=== PATIENT | male | born 1960 | race Caucasian/White ===

== ENCOUNTER 2016-08-15 12:57 | Emergency (ER) | payer MEDICAID ==
--- NOTE | 2016-08-15 13:02 | ED Physician Chart ---
Chief Complaint/HPI - Patient Information Date Seen:: 08/15/16 Time Seen:: 13:01 Chief Complaint:: urinary incontinence History of Present Illness:: 55-year-old male history of urinary incontinence and psychiatric issues complains of acute, intermittent, moderate, urinary incontinence, that seems to be worse at night, 2 weeks. Had recent UTI won't take antibiotics but symptoms did not improve. Allergies:: Allergies Allergy/AdvReac Type Severity Reaction Status Date / Time No Known Allergies Allergy Verified 07/27/16 19:41 Historian:: Patient, EMS Review:: Nurse's Note Reviewed, EMS run form Reviewed, Transfer documents Reviewed Review of Systems - Review of Systems Other: Complete system review otherwise unremarkable except as noted in HPI. Past Medical History - Past Medical History Past Medical History: Other (urinary incontinence) Family History: None Social History: Non Smoker, No Alcohol, No Drug Use, Care Facility Surgical History: None Psychiatricy History: Other Medication: Reviewed Family Medical History - Family Member Mother History Unknown: Yes Ethnicity: Non- Living Status: Hx Family Cancer: No Hx Family Coronary Artery Disease: No Hx Family Congestive Heart Failure: No Hx Family Hypertension: No Hx Family Stroke: No Hx Family Diabetes: No Hx Family Seizures: No Hx Family Dementia: No Hx Family AIDS: No Hx Family HIV: No Hx Family COPD: No Hx Family Hepatitis: No Hx Family Psychiatric Problems: No Hx Family Tuberculosis: No Physical Exam - Physical Examination Other:: INITIAL VITAL SIGNS: Reviewed by me GENERAL: Alert and interactive. No acute distress HEAD: Head is normocephalic and atraumatic EYES: EOMI. . No scleral icterus. No conjunctival injection ENT: Moist mucous membranes. NECK: Supple. No masses. Full range of motion RESPIRATORY: No tachypnea. Clear breath sounds bilaterally. No wheezing, rales, or rhonchi CV: Regular rate and rhythm. No murmurs, rubs, or gallops ABDOMEN: Soft, non-distended, non-tender. No guarding. No rebound. No masses. EXTREMITIES: No deformity. No cyanosis. No edema. SKIN: Warm and dry. No obvious rashes. NEUROLOGIC: Alert and oriented. Face is symmetric. Speech is normal. Moves all extremities equally. Motor and sensory distally intact. Labs/Radiology/EKG Results - Lab Results Results: Lab Results 08/15/16 08/15/16 Range/Units 13:23 13:35 WBC 6.3 (4.8-10.8) Th/cmm RBC 5.51 (4.30-5.70) Mil/cmm Hgb 15.2 D (13.2-17.3) gm/dL Hct 45.2 D (39.0-49.0) % MCV 82.0 (80-99) fl MCH 27.6 (26.0-30.0) pg MCHC Differential 33.6 (28.0-36.0) pg RDW 13.6 (11.5-20.0) % Plt Count 200 D (150-400) Th/cmm MPV 7.3 fl Neutrophils % 65.1 (40.0-80.0) % Lymphocytes % 27.3 (20.0-50.0) % Monocytes % 5.5 (2.0-10.0) % Eosinophils % 1.7 (0.0-5.0) % Basophils % 0.4 (0.0-2.0) % Urine Source CLEAN C Urine Color YELLOW Urine Clarity CLEAR (CLEAR) Urine pH 7.0 Ur Specific Griffin 1.020 (1.005-1.030) Urine Protein NEGATIVE (NEGATIVE) mg/dL Urine Glucose (UA) NEGATIVE (NEGATIVE) mg/dL Urine Ketones NEGATIVE (NEGATIVE) mg/dL Urine Blood NEGATIVE (NEGATIVE) Urine Nitrate NEGATIVE (NEGATIVE) Urine Bilirubin NEGATIVE (NEGATIVE) Urine Urobilinogen 0.2 (0.2 - 1.0) E.U./dL Ur Leukocyte Esterase NEGATIVE (NEGATIVE) Urine RBC 0-2 H (0-5) /hpf Urine WBC 0-2 (0-5) /hpf Ur Epithelial Cells RARE (FEW) /lpf Urine Bacteria NONE SEEN (NONE SEEN) /hpf ED Septic Shock - . Is Septic Shock (SBP<90, OR Lactate>4 mmol\L) present?: No Reassessment (Disposition) - Reassessment Reassessment:: The patient is experience intermittent urinary incontinence. Labs showed some hypoglycemia. Drinking a few juices. Accu-Chek showed great improvement. Patient was asymptomatic. No UTI. Discussed case with the physician Dr. Henderson. To be treated as outpatient. Referred to urology. Gave return to ER precautions. Patient understands and agrees the plan. Reassessment Condition:: Improved - Diagnosis Diagnosis:: Urinary incontinence - Aftercare/Follow up Instructions Aftercare/Follow-Up Instructions:: Counseled pt regarding lab results/diagnosis & need follow up, Refer to Discharge Instructions - Patient Disposition Discharge/Transfer:: Home Time:: 14:13 Condition at Disposition:: Improved ED Discharge Plan - Patient Disposition Admit/Discharge/Transfer: PT DISCHARGED HOME Instructions: Urinary Incontinence-Brief Additional Instructions: Follow up with PMD this week. Accepting Physician: Anselmo Guevara [Provisional Staff] -
[2016-08-15 13:43] LABS: URINE BILIRUBIN NEGATIVE (NEGATIVE); URINE BLOOD NEGATIVE (NEGATIVE); URINE COLOR YELLOW; URINE GLUCOSE (UA) NEGATIVE (NEGATIVE); URINE KETONE NEGATIVE (NEGATIVE)
[2016-08-15 13:44] LABS: URINE PROTEIN NEGATIVE (NEGATIVE); URINE UROBILINOGEN 0.2 E.U./dL (0.2 - 1.0)
[2016-08-15 13:46] LABS: URINE BACTERIA NONE SEEN /hpf (NONE SEEN); URINE EPITHELIAL CELLS RARE /lpf (FEW); URINE RBC 0-2 /hpf (0-5); URINE WBC 0-2 /hpf (0-5)
[2016-08-15 13:57] LABS: % BASOPHILS 0.4 % (0.0-2.0); % EOSINOPHILS 1.7 % (0.0-5.0); % LYMPHOCYTES 27.3 % (20.0-50.0); % MONOCYTES 5.5 % (2.0-10.0); % NEUTROPHILS 65.1 % (40.0-80.0); MEAN CORPUSCULAR HEMOGLOBIN 27.6 pg (26.0-30.0); MEAN CORPUSCULAR HGB CONC 33.6 pg (28.0-36.0); MEAN PLATELET VOLUME 7.3 fl; NEUTROPHILE ABSOLUTE 4.2 Th/cmm (1.8-8.0); RED BLOOD COUNT 5.51 Mil/cmm (4.30-5.70); RED CELL DISTRIBUTION WIDTH 13.6 % (11.5-20.0); WHITE BLOOD COUNT 6.3 Th/cmm (4.8-10.8)
[2016-08-15 14:00] LABS: HEMOGLOBIN 15.2 gm/dL (13.2-17.3)
[2016-08-15 14:01] LABS: HEMATOCRIT 45.2 % (39.0-49.0); PLATELET COUNT 200 Th/cmm (150-400)
[2016-08-15 14:12] LABS: ALB/GLOB RATIO 1.5 (1.0-1.8); ALKALINE PHOSPHATASE 161 U/L (34-104); ANION GAP 11.6 (7.0-16.0); BILIRUBIN,TOTAL 0.6 mg/dL (0.3-1.0); BUN - UREA NITROGEN 18 mg/dL (7-25); CALCIUM SERUM 10.5 mg/dL (8.6-10.3); CARBON DIOXIDE 29.2 mEq/L (21.0-31.0); CHLORIDE 99 mEq/L (98-107); POTASSIUM SERUM 3.8 mEq/L (3.5-5.1); SGOT 28 U/L (13-39); SGPT/ALT 20 U/L (7-52); SODIUM SERUM 136 mEq/L (136-145)
[2016-08-15 14:13] LABS: GLUCOSE 49 mg/dL (70-105)
== END 2016-08-15 15:20 | disposition home or self-care (01) ==
LOC: ER 12:57
DX: R32 Unspecified urinary incontinence (principal); E16.2 Hypoglycemia, unspecified
CPT/HCPCS: 36415-UA; 80053-TC; 81001-TC; 82948-90; 83605; 85025-TC; Z7502

== ENCOUNTER 2017-03-07 11:02 | Inpatient (IN) | payer MEDICAID ==
[2017-03-07] MEDS ORDERED: Sodium Chloride 0.9% 1,000 ML IV ONE (11:08)
--- NOTE | 2017-03-07 11:17 | ED Physician Chart ---
Chief Complaint/HPI - Patient Information Date Seen:: 03/07/17 Time Seen:: 11:09 Chief Complaint:: diarrhea History of Present Illness:: [facility] for diarrhea x2 days this am. unclear what color diarrhea was. no other cases of diarrhea known at [facility]. pt was given a shower wash. may have some dementia by records. Pt was witnessed to be drinking some of his shampoo while in shower... pt reports abd discomfort at this time. no fever. no n/v. Allergies:: Allergies Allergy/AdvReac Type Severity Reaction Status Date / Time No Known Allergies Allergy Verified 08/15/16 13:16 Historian:: Patient Review:: Transfer documents Reviewed Review of Systems - Review of Systems General/Constitutional: No fever, No chills, No weight loss, No weakness, No diaphoresis, No edema, No loss of appetite Skin: No skin lesions, No rash, No bruising Head: No headache, No light-headedness Eyes: No loss of vision, No pain, No diplopia ENT: No earache, No nasal drainage, No sore throat, No tinnitus Neck: No neck pain, No swelling, No thyromegaly, No stiffness, No mass noted Cardio Vascular: No chest pain, No palpitations, No PND, No orthopnea, No edema Pulmonary: No SOB, No cough, No sputum, No wheezing GI: No nausea, No vomiting, Diarrhea, Pain, No melena, No hematochezia, No constipation, No hematemesis G/U: No dysuria, No frequency, No hematuria Musculoskeletal: No bone or joint pain, No back pain, No muscle pain Endocrine: No polyuria, No polydipsia Psychiatric: No prior psych history, No depression, No anxiety, No suicidal ideation Hematopoietic: No bruising, No lymphadenopathy Allergic/Immuno: No urticaria, No angioedema Neurological: No syncope, No focal symptoms, No weakness, No paresthesia, No headache, No seizure, No dizziness, No confusion, No vertigo Past Medical History - Past Medical History Past Medical History: Dementia, Other (vertigo) Social History: Care Facility Psychiatricy History: Dementia, Other Medication: Reviewed Family Medical History - Family Member Mother History Unknown: Yes Ethnicity: Non- Living Status: Hx Family Cancer: No Hx Family Coronary Artery Disease: No Hx Family Congestive Heart Failure: No Hx Family Hypertension: No Hx Family Stroke: No Hx Family Diabetes: No Hx Family Seizures: No Hx Family Dementia: No Hx Family AIDS: No Hx Family HIV: No Hx Family COPD: No Hx Family Hepatitis: No Hx Family Psychiatric Problems: No Hx Family Tuberculosis: No Physical Exam - Physical Examination General/Constitutional: Awake, Well-developed, well-nourished, Alert, No distress, GCS 15, Non-toxic appearing, Ambulatory Other Gen/Cons comments:: slt dry oral mucosa Head: Atraumatic Eyes: Lids, conjuctiva normal, PERRL, EOMI Skin: Nl inspection, No rash, No skin lesions, No ecchymosis, Well hydrated, No lymphadenopathy ENMT: External ears, nose nl, Nasal exam nl, Lips, teeth, gums nl Neck: Nontender, Full ROM w/o pain, No JVD, No nuchal rigidity, No bruit, No mass, No stridor Respiratory: Nl effort/Exclusion, Clear to Auscultation, No Wheeze/Rhonchi/Rales Cardio Vascular: RRR, No murmur, gallop, rubs, NL S1 S2 GI: No organomegaly, No hernia, Normal BS's, Nondistended, No mass/bruits, No McBurney tenderness Other GI comments:: vague tndr. no masses. thin. nabs pos. no rebound. : No CVA tenderness Extremities: No tenderness or effusion, Full ROM, normal strength in all extremities, No edema, Normal digits & nails Neuro/Psych: Alert/oriented, DTR's symmetric, Normal sensory exam, Normal motor strength, Judgement/insight normal, Mood normal, Normal gait, No focal deficits Misc: normal gait, Normal back, No paraspinal tenderness Labs/Radiology/EKG Results - Lab Results Results: Laboratory Tests 03/07/17 03/07/17 11:18 11:18 WBC 9.9 D RBC 5.20 Hgb 14.2 Hct 43.6 MCV 83.9 MCH 27.3 MCHC Differential 32.6 RDW 13.6 Plt Count 199 MPV 7.1 Neutrophils % 86.4 H Lymphocytes % 10.4 L Monocytes % 3.0 Eosinophils % 0.2 Basophils % 0.0 Sodium 137 Potassium 3.6 Chloride 106 Carbon Dioxide 25.4 Anion Gap 9.2 BUN 14 Creatinine 1.0 Est GFR ( Amer) > 60.0 Est GFR (Non-Af Amer) > 60.0 BUN/Creatinine Ratio 14.0 Glucose 127 H Calcium 9.5 Total Bilirubin 0.6 AST 28 ALT 20 Alkaline Phosphatase 92 Total Protein 7.0 Albumin 4.3 Globulin 2.7 Albumin/Globulin Ratio 1.6 Lipase 22 - Radiology Results Results: ct abd/p- lrg bowel loops w fluid. no nam KEVIN. appy not seen. bladder wall thickening and trabeculation. ED Septic Shock - . Is Septic Shock (SBP<90, OR Lactate>4 mmol\L) present?: No Reassessment (Disposition) - Reassessment Reassessment:: case dw dr riggins. will admit to med sx for obs and poss geriatric consult. Reassessment Condition:: Unchanged - Diagnosis Diagnosis:: 1 diarrhea 2 dehydration 3 concern for progressive dementia - Patient Disposition Admitted to:: Med/Surg Condition at Disposition:: Unchanged
[2017-03-07 11:25] LABS: % EOSINOPHILS 0.2 % (0.0-5.0); % LYMPHOCYTES 10.4 % (20.0-50.0); % NEUTROPHILS 86.4 % (40.0-80.0); HEMATOCRIT 43.6 % (39.0-49.0); HEMOGLOBIN 14.2 gm/dL (13.2-17.3); MEAN CELL VOLUME 83.9 fl (80-99); MEAN CORPUSCULAR HEMOGLOBIN 27.3 pg (26.0-30.0); MEAN CORPUSCULAR HGB CONC 32.6 pg (28.0-36.0); MEAN PLATELET VOLUME 7.1 fl; NEUTROPHILE ABSOLUTE 8.6 Th/cmm (1.8-8.0); PLATELET COUNT 199 Th/cmm (150-400); RED CELL DISTRIBUTION WIDTH 13.6 % (11.5-20.0)
[2017-03-07 11:26] LABS: WHITE BLOOD COUNT 9.9 Th/cmm (4.8-10.8)
[2017-03-07 11:41] LABS: ALB/GLOB RATIO 1.6 (1.0-1.8); ALKALINE PHOSPHATASE 92 U/L (34-104); ANION GAP 9.2 (7.0-16.0); BILIRUBIN,TOTAL 0.6 mg/dL (0.3-1.0); BUN - UREA NITROGEN 14 mg/dL (7-25); CALCIUM SERUM 9.5 mg/dL (8.6-10.3); CARBON DIOXIDE 25.4 mEq/L (21.0-31.0); CHLORIDE 106 mEq/L (98-107); GLUCOSE 127 mg/dL (70-105); LIPASE 22 U/L (11-82); POTASSIUM SERUM 3.6 mEq/L (3.5-5.1); SODIUM SERUM 137 mEq/L (136-145)
[2017-03-07 12:09] LABS: SGOT 28 U/L (13-39); SGPT/ALT 20 U/L (7-52)
--- NOTE | 2017-03-07 12:47 | Diagnostic Imaging Report ---
CT abdomen and pelvis without intravenous contrast Indication: Pain, diarrhea Comparison: None, Technique: Axial images were obtained from the lung bases to the bilateral proximal femurs without IV contrast. Coronal reconstructions were made. total DLP: 397, CTDI7.7 FINDINGS: Hypoventilatory and atelectatic changes of the lung bases are noted. Assessment of the solid organs is limited due to lack of IV contrast. Exam is also limited due to lack of oral contrast. There is a subcentimeter low-density lesion of the dome of the liver, too small to characterize but suggestive of the cyst. No radiopaque gallstones identified. No focal splenic lesions. Limited assessment of the pancreas demonstrate punctate calcification seen along the tail of pancreas which is likely adjacent to the pancreas and is likely vascular. No focal adrenal lesions. No hydronephrosis or focal renal lesions. Diffuse urinary bladder wall thickening is seen with trabeculations. The prostate gland is borderline prominent. There are multiple fluid-filled loops of bowel including large bowel loops. No evidence of small bowel obstruction. The appendix is not visualized. No free air or free fluid. Diffuse atherosclerotic vascular disease is noted. Degenerative changes of the spine and pelvis are noted. IMPRESSION: Limited exam due to lack of IV and oral contrast. Multiple fluid distended loops of bowel, primarily involving large bowel loops. Findings may be secondary to infectious inflammatory process. Please correlate with clinical findings. No evidence of small bowel obstruction. Appendix is not visualized. Urinary bladder wall thickening and trabeculation which may be due to chronic infectious or inflammatory process of posterior chronic bladder outlet obstruction from a mildly prominent prostate gland. Atherosclerotic vascular disease.
[2017-03-07] MEDS ORDERED: D5-0.45NS 1,000 ML IV SCH (13:32)
[2017-03-07 15:52] LABS: URINE BILIRUBIN NEGATIVE (NEGATIVE); URINE BLOOD SMALL (NEGATIVE); URINE COLOR YELLOW; URINE GLUCOSE (UA) NEGATIVE (NEGATIVE); URINE KETONE NEGATIVE (NEGATIVE); URINE PH 5.5; URINE PROTEIN TRACE mg/dL (NEGATIVE)
[2017-03-07 15:54] LABS: URINE EPITHELIAL CELLS NONE SEEN /lpf (FEW); URINE WBC >100 /hpf (0-5)
[2017-03-07] MEDS: D5-0.45NS 1,000 ML IV SCH (15:54)
[2017-03-07 15:55] LABS: URINE BACTERIA MODERATE /hpf (NONE SEEN)
[2017-03-07] MEDS ORDERED: Hydrocodone/APAP 10 mg/325 mg Tab PO PRN (16:25)
[2017-03-07] MEDS ORDERED: Maalox 30 mL Cup PO PRN (16:25)
[2017-03-07] MEDS ORDERED: Magnesium Hydroxide (MOM) 30 mL UDC PO PRN (16:25)
[2017-03-07] MEDS ORDERED: Hydrocodone/APAP 5mg/325mg Tab PO PRN (16:25)
[2017-03-07] MEDS ORDERED: Albuterol Nebulizer 2.5mg/3mL HHN PRN (16:28)
[2017-03-07] MEDS ORDERED: Ipratropium Neb 0.5 mg/2.5 mL UD HHN PRN (16:28)
[2017-03-07] MEDS ORDERED: guaiFENesin 200 MG/10 ML UDC PO PRN (16:28)
[2017-03-07] MEDS ORDERED: Non-Formulary Item 1 EA (Levofloxacin 500mg/100ml [Levaquin Pb] 500 MG) IV SCH (16:30)
[2017-03-07] MEDS: Levofloxacin 500mg/100mL 500 MG/100 ML BAG IV SCH (18:11)
[2017-03-07] MEDS ORDERED: Pneumococcal Vaccine 0.5 mL Vial IM ONE (19:53)
[2017-03-07] MEDS: metroNIDAZOLE 500mg/NS 100mL 500 MG/100 ML BAG IV SCH (20:34)
[2017-03-07] MEDS: Benztropine 1 MG TAB PO SCH (20:39)
--- NOTE | 2017-03-08 03:12 | Admit Criteria Form ---
Admit Criteria Forms - Admit Criteria Diagnosis: DEHYDRATION Clinical Indications for Admission to Inpatient Care (Place 'X' for any and all applicable criteria): Admission is indicated for ANY ONE of the following (1)(2)(3)(4)(5): [X ]I. Inpatient admission required rather than observation care (see Dehydration: Observation Care guideline as appropriate) because of ANY ONE of the following: [ ]a) Vomiting that is severe or persistent [ ]b) Severe electrolyte abnormalities requiring inpatient care [ ]c) Hemodynamic instability [ ]d) IV fluid to replace significant ongoing losses (greater than 3 L/m2 per day (10) (11) [ ]e) Parenteral nutrition regimen that must be implemented on inpatient basis [X ]f) Other condition,treatment or monitoring requiring inpatient admission [ ]II. Serious cause for dehydration requiring acute hospitalization (eg, bowel obstruction, increased intracranial pressure, infectious cause) Extended stay beyond goal length of stay may be needed for(1)(3 )(4)(17): [ ]a) Chronic severe dehydration [ ]b) Persistent vital sign changes, severe electrolyte imbalance, or diagnosed cause of dehydration that requires continued hospitalization (eg, bowel obstruction, increased intracranial pressure) [ ]c) Older patients (65 years or older) [ ]d) Severe comorbid illness (eg, renal failure, heart failure, poorly controlled diabetes) The original [employer] content created by [employer] has been revised. The portions of the content which have been revised are identified through the use of italic text or in bold, and [facility] has neither reviewed nor approved the modified material. All other unmodified content is copyright [facility]. Please see references footnoted in the original [facility] edition 2016 Admit Criteria Met?: Yes
[2017-03-08] MEDS: metroNIDAZOLE 500mg/NS 100mL 500 MG/100 ML BAG IV SCH ×3 (05:47→20:58)
[2017-03-08] MEDS: D5-0.45NS 1,000 ML IV SCH ×2 (05:48→22:52)
[2017-03-08 07:50] LABS: URINE BILIRUBIN NEGATIVE (NEGATIVE); URINE BLOOD SMALL (NEGATIVE); URINE COLOR YELLOW; URINE GLUCOSE (UA) NEGATIVE (NEGATIVE); URINE KETONE NEGATIVE (NEGATIVE); URINE PROTEIN TRACE mg/dL (NEGATIVE); URINE UROBILINOGEN 0.2 E.U./dL (0.2 - 1.0)
[2017-03-08 07:51] LABS: URINE BACTERIA MODERATE /hpf (NONE SEEN); URINE EPITHELIAL CELLS RARE /lpf (FEW); URINE WBC 50-100 /hpf (0-5)
[2017-03-08] MEDS: Benztropine 1 MG TAB PO SCH ×2 (08:29→22:18)
[2017-03-08] MEDS: Pantoprazole 40 mg EC Tab PO SCH (08:29)
--- NOTE | 2017-03-08 09:54 | Diagnostic Imaging Report ---
Portable chest x-ray History: Leukocytosis, shortness of breath Allowing for portable technique the heart size is normal. No focal pulmonary parenchymal processes. No hilar or mediastinal abnormalities. Impression: No acute abnormalities.
[2017-03-08 10:44] LABS: % BASOPHILS 0.4 % (0.0-2.0); % EOSINOPHILS 0.5 % (0.0-5.0); % LYMPHOCYTES 30.4 % (20.0-50.0); % NEUTROPHILS 64.7 % (40.0-80.0); HEMATOCRIT 43.8 % (39.0-49.0); HEMOGLOBIN 14.5 gm/dL (13.2-17.3); MEAN CELL VOLUME 83.3 fl (80-99); MEAN CORPUSCULAR HEMOGLOBIN 27.6 pg (26.0-30.0); MEAN CORPUSCULAR HGB CONC 33.1 pg (28.0-36.0); MEAN PLATELET VOLUME 6.7 fl; PLATELET COUNT 203 Th/cmm (150-400); RED BLOOD COUNT 5.26 Mil/cmm (4.30-5.70); RED CELL DISTRIBUTION WIDTH 13.5 % (11.5-20.0)
[2017-03-08 10:45] LABS: WHITE BLOOD COUNT 6.1 Th/cmm (4.8-10.8)
[2017-03-08 11:03] LABS: ALB/GLOB RATIO 1.5 (1.0-1.8); ALKALINE PHOSPHATASE 104 U/L (34-104); ANION GAP 7.9 (7.0-16.0); BILIRUBIN,TOTAL 0.7 mg/dL (0.3-1.0); BUN - UREA NITROGEN 9 mg/dL (7-25); BUN/CREATININE RATIO 11.3; CALCIUM SERUM 9.2 mg/dL (8.6-10.3); CARBON DIOXIDE 26.7 mEq/L (21.0-31.0); CHLORIDE 107 mEq/L (98-107); CREATININE - SERUM 0.8 mg/dL (0.7-1.3); GLUCOSE 106 mg/dL (70-105); POTASSIUM SERUM 3.6 mEq/L (3.5-5.1); SGOT 30 U/L (13-39); SGPT/ALT 20 U/L (7-52); SODIUM SERUM 138 mEq/L (136-145)
--- NOTE | 2017-03-08 11:58 | Consultation ---
DATE OF CONSULTATION: 03/08/2017 INPATIENT GASTROINTESTINAL CONSULTATION REFERRING PHYSICIAN: Dr. Skaggs. REASON FOR CONSULTATION: Diarrhea. HISTORY OF PRESENT ILLNESS: This is a 56-year-old male who is at a [facility] with some underlying psychiatric illness. The patient has had diarrhea for 2 days without any melena or hematochezia. He denies any nausea, vomiting, but somewhat poor historian. He apparently was drinking shampoo and then subsequently developed diarrhea. PAST MEDICAL HISTORY: Psychiatric illness, dementia. PAST SURGICAL HISTORY: None to recently. FAMILY HISTORY: Noncontributory. SOCIAL HISTORY: He denies tobacco, alcohol or IV drug usage. ALLERGIES: None. CURRENT MEDICATIONS: Tylenol, [place], Maalox, Cogentin, Robitussin, Haldol, Levaquin, Atrovent, Claritin, Ativan, milk of magnesia, Antivert, Flagyl, naproxen, Protonix, Seroquel, and Ambien. REVIEW OF SYSTEMS: Notable for the diarrhea. All other systems were otherwise negative. PHYSICAL EXAMINATION: VITAL SIGNS: Temperature 98.4, breathing 19, pulse of 73, blood pressure is 138/73, satting 98%. GENERAL: In no apparent distress. EYES: Anicteric, normal conjunctivae. HEENT: Normocephalic, atraumatic. Moist mucous membranes. NECK: Soft, supple. CHEST: Clear. No effort. CARDIOVASCULAR: Regular rate and rhythm. ABDOMEN: Soft, nontender, nondistended, normal bowel sounds. SKIN: Warm and dry. EXTREMITIES: Reveal no cyanosis. PSYCHOLOGIC: Awake. LABORATORY DATA: Show a T-bili 0.6, AST 28, ALT 20, alkaline phosphatase 92, lipase 22. White count 9.9, hemoglobin 14.2, platelets of 199. CT abdomen and pelvis showed multiple fluid distended loops of bowel involving the large bowel. IMPRESSION: This is a 56-year-old male with diarrhea. Cause could be from the detergent effects of the soap that he drank, on the other hand it could be underlying infectious, inflammatory process, ischemia is less likely. The patient has no symptoms of any abdominal pain. PLAN: 1. Check stool studies. 2. Consider colonoscopy if the patient has never had one and if his diarrhea does not improve. 3. Continue supportive care and antibiotics. Thank you for allowing me to participate. Please call me if any questions. Psychiatric evaluation per primary doctors. JOB# [id number]
--- NOTE | 2017-03-08 13:37 | History & Physical ---
ADMIT DATE: 03/07/2017 CHIEF COMPLAINT: Diarrhea. HISTORY OF PRESENT ILLNESS: The patient is a 56-year-old male who has been transferred from assisted for diarrhea for 2 days. The patient unclear what color diarrhea is. No known cause of diarrhea at the assisted. The patient does have a history of dementia. The patient was found to be ____ shampoo while in shower. The patient complains of abdominal pain. No reports of fever, chills, nausea, vomiting. ALLERGIES: No known allergies. REVIEW OF SYSTEMS: See history of present illness. PAST MEDICAL HISTORY: Dementia, vertigo. SOCIAL HISTORY: No reports of smoking, drinking or drug use. The patient is a resident of skilled facility. PSYCHIATRIC HISTORY: Dementia. MEDICATIONS: See medication reconciliation form. FAMILY HISTORY: Noncontributory. PHYSICAL EXAMINATION: VITAL SIGNS: On admission, temperature 97.9, pulse 79, blood pressure ____, respiratory rate 16, and O2 sat 97% on room air. GENERAL: The patient is awake, alert, nontoxic in appearance. HEENT: Normocephalic, atraumatic. Extraocular movements are intact. Oropharynx is clear. NECK: Supple. No thyromegaly. No lymphadenopathy. CARDIOVASCULAR: S1, S2. No murmurs, rubs, gallops. RESPIRATORY: Clear. No wheezes or rhonchi. GASTROINTESTINAL: Soft, nondistended. Positive bowel sounds. Diffuse abdominal tenderness. GENITOURINARY: No CVA tenderness. No suprapubic tenderness. BACK: No midline tenderness. EXTREMITIES: Equal pulses bilaterally. No significant edema. SKIN: Negative. NEUROLOGIC: Cranial nerves intact. Extraocular movements intact. Sensation intact. Neurovascular is intact. Bilateral ____ muscle strength grossly. LABORATORY DATA: Hematology, WBC 9.9, hemoglobin is 14.2, hematocrit 43.6, platelet count of 199, 86% neutrophils, 10% lymphocytes. Chemistry: Sodium is 137, potassium 3.6, chloride ____, bicarbonate 25, anion gap 9.2, BUN 14, creatinine 1.0, GFR is more than 60, glucose 127, calcium 9.5. Total bilirubin 0.6, AST 28, ALT 20, alkaline phosphatase 92, total protein 7.0, albumin 4.3, globulin 2.7, and lipase 22. Urinalysis: Small blood, large leukocyte esterase, 2-5 rbc, more than 100 wbc's. MICROBIOLOGY: Pending. RADIOLOGY: CT abdomen and pelvis, multiple fluid distended loops of bowel forming 1 large bowel loop. Findings can be secondary to infectious ____ process. No evidence of small bowel obstruction, ____, urinary bladder wall thickening, ____ due to chronic infection from ____ possible chronic bladder, ____ from mildly prominent prostate gland, atherosclerotic vascular disease. Chest x-ray, no acute abnormalities. IMPRESSION: 1. Diarrhea. 2. Gastroenteritis. 3. Dementia. 4. Hyperglycemia. 5. Urinary tract infection. PLAN: The patient admitted to Med/Surg unit, seen by Dr. Rafi Skaggs. We will obtain Infectious Disease and GI consultation. JOB# [id number]
[2017-03-08] MEDS: Levofloxacin 500mg/100mL 500 MG/100 ML BAG IV SCH (17:00)
--- NOTE | 2017-03-08 21:46 | Consultation ---
DATE OF CONSULTATION: 03/07/2017 PRIMARY CARE PHYSICIAN: Dr. Skaggs. REASON FOR CONSULTATION: Diarrhea. HISTORY OF PRESENT ILLNESS: This is a 56-year-old male, who was brought to the Emergency Room with complaint of diarrhea for last 2 days, watery, constant, and without any blood in it. The patient was evaluated in the ER, was admitted to the hospital. Infectious consultation was called. Discussed with the staff. Cultures ordered. Antibiotic adjusted. PAST MEDICAL HISTORY: Vertigo and dementia. FAMILY HISTORY: Negative. ALLERGIES: None. SOCIAL HISTORY: Nonsmoker. REVIEW OF SYSTEMS: A 14-point review of system negative except above. PHYSICAL EXAMINATION: GENERAL: The patient is awake, following verbal commands, able to answer simple questions. VITAL SIGNS: Temperature is 97.9, pulse 79, respirations 16, blood pressure 129/82. HEENT: Mild pallor. No icterus. No plaque. NECK: Supple. LUNGS: Breath sounds . ABDOMEN: Soft. Bowel sounds present. Generalized tenderness. NECK: No thyroid, no cervical lymph nodes. LABORATORY DATA: White count is 9000, hemoglobin is 14 g, platelets 199. Cultures are pending. CT of the abdomen and pelvis shows multiple distended bowel loops including large bowel. DIAGNOSES: Gastroenteritis and colitis. PLAN: The patient was started on Flagyl and Levaquin. Supportive care. Stool cultures. Rest of the care as ordered in [facility]. Thank you, Dr. Skaggs, for this consult. JOB# [id number]
[2017-03-09] MEDS: metroNIDAZOLE 500mg/NS 100mL 500 MG/100 ML BAG IV SCH ×3 (04:19→20:25)
[2017-03-09] MEDS ORDERED: Benztropine 1 MG TAB PO SCH (05:59)
--- NOTE | 2017-03-09 06:17 | Consultation ---
DATE OF CONSULTATION: 03/09/2017 AGE: 56. SEX: Male. PHYSICIAN: Dr. Skaggs. UNIFORM MAKER: Dr. Conrad. TYPE OF THE REPORT: Psychiatric consult. REASON FOR THE CONSULT: Evaluation of psychotropic medications. HISTORY OF PRESENT ILLNESS: The patient is a 56-year-old male with history of chronic paranoid schizophrenia. The patient was admitted to The hospital because of increased diarrhea for 4 days prior to his admission. The patient has history of schizophrenia and I was asked to evaluate the patient. The patient currently is calm, but he is complaining of diarrhea. The patient has been taking Cogentin, Haldol and Seroquel. It seems that the patient has been on high dose of antipsychotic medications and he is taking 2 different kinds, which is Seroquel and Haldol. I am not familiar with the patient or his history, but again it seems that he has been on high dose of antipsychotic medications. He denies any auditory or visual hallucinations or delusions. He also denies any thoughts of suicide or homicide. PAST PSYCHIATRIC HISTORY: The patient has history of schizophrenia. PAST MEDICAL HISTORY: The patient was admitted because of diarrhea. SOCIAL HISTORY: The patient lives in a correction. Denies alcohol or street drug use. The patient is , but he has 3 children and he is in touch with his children. MENTAL STATUS EXAM: The patient appears his stated age. Anxious. Cooperative. Mood not depressed nor elated. Thought processes are mainly goal directed. The patient denies any auditory or visual hallucinations or delusions. The patient denies any thoughts of suicide or homicide. The patient is alert and oriented to time, place, person, and situation. Intact immediate, recent and remote memories. Fair insight and judgment. ASSESSMENT: Primary diagnosis: Chronic paranoid schizophrenia, in remission. TREATMENT PLAN AND RECOMMENDATIONS: 1.Decrease Haldol. 2.Decrease Cogentin. 3.We will follow up. Thanks to Dr. Skaggs and we will follow with you. JOB# [id number]
[2017-03-09 06:57] LABS: % BASOPHILS 0.3 % (0.0-2.0); % LYMPHOCYTES 26.3 % (20.0-50.0); % MONOCYTES 5.8 % (2.0-10.0); % NEUTROPHILS 66.6 % (40.0-80.0); HEMATOCRIT 44.8 % (39.0-49.0); HEMOGLOBIN 14.9 gm/dL (13.2-17.3); MEAN CELL VOLUME 82.5 fl (80-99); MEAN CORPUSCULAR HEMOGLOBIN 27.4 pg (26.0-30.0); MEAN CORPUSCULAR HGB CONC 33.2 pg (28.0-36.0); MEAN PLATELET VOLUME 6.9 fl; NEUTROPHILE ABSOLUTE 3.4 Th/cmm (1.8-8.0); PLATELET COUNT 214 Th/cmm (150-400); RED BLOOD COUNT 5.43 Mil/cmm (4.30-5.70); RED CELL DISTRIBUTION WIDTH 13.2 % (11.5-20.0); WHITE BLOOD COUNT 5.2 Th/cmm (4.8-10.8)
[2017-03-09 07:32] LABS: BUN - UREA NITROGEN 5 mg/dL (7-25); BUN/CREATININE RATIO 6.3; CALCIUM SERUM 9.3 mg/dL (8.6-10.3); CARBON DIOXIDE 27.3 mEq/L (21.0-31.0); CHLORIDE 104 mEq/L (98-107); CREATININE - SERUM 0.8 mg/dL (0.7-1.3); GLUCOSE 94 mg/dL (70-105); POTASSIUM SERUM 3.3 mEq/L (3.5-5.1); SODIUM SERUM 137 mEq/L (136-145)
[2017-03-09] MEDS: Benztropine 1 MG TAB PO SCH (09:24)
[2017-03-09] MEDS: Pantoprazole 40 mg EC Tab PO SCH (09:25)
[2017-03-09] MEDS: KCL 20mEq/100mL Premix 20 MEQ/100 ML PIGGYBACK IV SCH ×2 (13:10→15:53)
--- NOTE | 2017-03-09 13:31 | Progress Notes ---
DATE: 03/09/2017 SUBJECTIVE: The patient is asleep. The patient is n.p.o. The patient is on IV fluids. The patient is on IV antibiotics. No further reports of any diarrhea. OBJECTIVE: VITAL SIGNS: Temperature is 98.2, pulse 68, blood pressure 157/95, respiratory rate 20, O2 sat 98% on room air. CARDIAC: S1, S2. RESPIRATORY: Clear. ABDOMEN: Soft. Positive bowel sounds. LABORATORY DATA: Hematology, WBC 5.2, hemoglobin 14.9, hematocrit 44.8, platelet count of 214. No left shift noted. Chemistry: Sodium 137, potassium 3.3, chloride 104, bicarbonate 27, anion gap 9, BUN 5, creatinine 0.8, GFR is 160. Calcium is 9.3, glucose 94. C-reactive protein less than 0.2. Microbiology: MRSA screening from 03/07/2017 negative. Urine cultures 03/07/2017 pending. Stool culture pending. Blood culture pending. ASSESSMENT: 1. Diarrhea (improved). 2. Gastroenteritis. 3. Dementia. 4. Hyperglycemia. 5. Urinary tract infection. 6. Colitis. 7. Schizophrenia (chronic paranoia). PLAN: Continue current medication and treatment. Awaiting culture results. We will start the patient on p.o. intake. [facility]# [id number]
--- NOTE | 2017-03-09 14:46 | Infectious Disease Prog Note ---
Infectious Disease Subjective - Review of Systems Service Date: 03/09/17 Subjective: cc gastroenteritis hpi- pt d/w dr conte to continue po levaquin flagyl x 7 days on discharge ros no fver o/e vss chets claer abd soft ext pulse Infectious Disease Objective - Results Result Diagrams: 03/09/17 06:27 03/09/17 06:27 Recent Labs: Laboratory Last Values WBC 5.2 Th/cmm (4.8-10.8) 03/09/17 06: RBC 5.43 Mil/cmm (4.30-5.70) 03/09/17 06:27 Hgb 14.9 gm/dL (13.2-17.3) 03/09/17 06: Hct 44.8 % (39.0-49.0) 03/09/17 06:27 MCV 82.5 fl (80-99) 03/09/17 06: MCH 27.4 pg (26.0-30.0) 03/09/17 06: MCHC Differential 33.2 pg (28.0-36.0) 03/09/17 06:27 RDW 13.2 % (11.5-20.0) 03/09/17 06:27 Plt Count 214 Th/cmm (150-400) 03/09/17 06:27 MPV 6.9 fl 03/09/17 06:27 Neutrophils % 66.6 % (40.0-80.0) 03/09/17 06: Lymphocytes % 26.3 % (20.0-50.0) 03/09/17 06: Monocytes % 5.8 % (2.0-10.0) 03/09/17 06:27 Eosinophils % 1.0 % (0.0-5.0) 03/09/17 06: Basophils % 0.3 % (0.0-2.0) 03/09/17 06:27 ESR 7 mm/hr (0-20) 03/09/17 06:27 Sodium 137 mEq/L (136-145) 03/09/17 06:27 Potassium 3.3 mEq/L (3.5-5.1) L 03/09/17 06:27 Chloride 104 mEq/L (98-107) 03/09/17 06:27 Carbon Dioxide 27.3 mEq/L (21.0-31.0) 03/09/17 06:27 Anion Gap 9.0 (7.0-16.0) 03/09/17 06:27 BUN 5 mg/dL (7-25) L 03/09/17 06:27 Creatinine 0.8 mg/dL (0.7-1.3) 03/09/17 06:27 Est GFR ( Amer) > 60.0 ml/min (>90) 03/09/17 06:27 Est GFR (Non-Af Amer) > 60.0 ml/min 03/09/17 06:27 BUN/Creatinine Ratio 6.3 03/09/17 06:27 Glucose 94 mg/dL (70-105) 03/09/17 06:27 Calcium 9.3 mg/dL (8.6-10.3) 03/09/17 06:27 Total Bilirubin 0.7 mg/dL (0.3-1.0) 03/08/17 10:36 AST 30 U/L (13-39) 03/08/17 10:36 ALT 20 U/L (7-52) 03/08/17 10:36 Alkaline Phosphatase 104 U/L (34-104) 03/08/17 10:36 C-Reactive Protein < 0.2 mg/dL (0.0-0.9) 03/09/17 06:27 Total Protein 6.7 gm/dL (6.0-8.3) 03/08/17 10:36 Albumin 4.0 gm/dL (4.2-5.5) L 03/08/17 10:36 Globulin 2.7 gm/dL 03/08/17 10:36 Albumin/Globulin Ratio 1.5 (1.0-1.8) 03/08/17 10:36 Lipase 22 U/L (11-82) 03/07/17 11:18 Urine Source [place] 03/08/17 05:58 Urine Color YELLOW 03/08/17 05:58 Urine Clarity SL. CLOUDY (CLEAR) 03/08/17 05:58 Urine pH 6.0 03/08/17 05:58 Ur Specific [place] (1.005-1.030) 03/08/17 05:58 Urine Protein TRACE mg/dL (NEGATIVE) 03/08/17 05:58 Urine Glucose (UA) NEGATIVE mg/dL (NEGATIVE) 03/08/17 05:58 Urine Ketones NEGATIVE mg/dL (NEGATIVE) 03/08/17 05:58 Urine Blood SMALL (NEGATIVE) H 03/08/17 05:58 Urine Nitrate NEGATIVE (NEGATIVE) 03/08/17 05:58 Urine Bilirubin NEGATIVE (NEGATIVE) 03/08/17 05:58 Urine Urobilinogen 0.2 E.U./dL (0.2 - 1.0) 03/08/17 05:58 Ur Leukocyte Esterase MODERATE (NEGATIVE) H 03/08/17 05:58 Urine RBC 2-4 /hpf (0-5) 03/08/17 05:58 Urine WBC 50-100 /hpf (0-5) H 03/08/17 05:58 Ur Epithelial Cells RARE /lpf (FEW) 03/08/17 05:58 Urine Bacteria MODERATE /hpf (NONE SEEN) 03/08/17 05:58 - Physical Exam Vitals and I&O: Vital Signs Temp 97.6 F 03/09/17 12:00 Pulse 82 03/09/17 12:00 Resp 19 03/09/17 12:00 BP 168/106 03/09/17 12:00 Pulse Ox 98 03/09/17 12:00 Intake & Output 03/08/17 03/09/17 03/09/17 18:59 06:59 18:59 Intake Total 1320 100 Balance 1320 100 Weight (lbs) 56.501 kg 56.245 kg Intake: Intake, IV Amount 1200 100 D5-0.45NS 1,000 ml @ 100 1000 mls/hr IV .Q10H DERRICK Rx#: [id number] Levofloxacin 500mg/100mL 100 500 mg In 100 ml @ 100 mls/hr IV Q24HR DERRICK Rx#: [id number] metroNIDAZOLE 500mg/NS 100 100 100mL 500 mg In 100 ml @ 100 mls/hr IV Q8HR DERRICK Rx #:[id number] Oral 120 Other: # Voids 4 4 # Bowel Movements 0 Stool Characteristics Liquid Active Medications: Current Medications Acetaminophen (Tylenol) 650 mg PO Q6H PRN PRN Reason: Mild Pain/Headache/T above 101 Stop: 05/06/17 16:24 Acetaminophen/Hydrocodone Bitart ([place] 10 Mg/325 Mg) 1 tab PO Q6H PRN PRN Reason: Pain (Severe) Stop: 05/06/17 16:24 Acetaminophen/Hydrocodone Bitart ([place] 5mg/325mg) 1 tab PO Q6H PRN PRN Reason: Moderate Pain Stop: 05/06/17 16:24 Al Hydrox/Mg Hydrox/Simethicone (Maalox) 30 ml PO Q6H PRN PRN Reason: Dyspepsia Stop: 05/06/17 16:24 Albuterol Sulfate (Albuterol 2.5mg/3ml Neb Ud) 2.5 mg HHN Q2HR PRN PRN Reason: Shortness of Breath or Wheeze Stop: 05/06/17 16:27 Benztropine Mesylate (Cogentin) 1 mg PO DAILY PENDING SALE TO [facility] Stop: 05/07/17 08:59 Last Admin: 03/09/17 09:24 Dose: 1 mg Benztropine Mesylate (Cogentin) 1 mg PO HS DERRICK Stop: 05/06/17 20:59 Clonidine HCl (Catapres) 0.1 mg PO Q6HR PRN PRN Reason: for SBP over 160 Stop: 05/08/17 07:56 Guaifenesin (Robitussin) 200 mg PO Q4HR PRN PRN Reason: Cough or Congestion Stop: 05/06/17 16:27 Haloperidol (Haldol) 20 mg PO HS DERRICK PRN Reason: Protocol Stop: 05/06/17 20:59 Last Admin: 03/08/17 22:17 Dose: 20 mg Haloperidol (Haldol) 5 mg PO DAILY DERRICK PRN Reason: Protocol Stop: 05/07/17 08:59 Last Admin: 03/09/17 09:25 Dose: 5 mg Dextrose/Sodium Chloride (D5-0.45ns) 1,000 mls @ 100 mls/hr IV .Q10H PENDING SALE TO [facility] Stop: 05/06/17 14:01 Last Admin: 03/08/17 22:52 Dose: 100 mls/hr Levofloxacin (Levaquin Pb) 500 mg in 100 mls @ 100 mls/hr IV Q24HR DERRICK Stop: 05/06/17 17:59 Last Infusion: 03/08/17 18:00 Dose: Infused Metronidazole (Flagyl) 500 mg in 100 mls @ 100 mls/hr IV Q8HR PENDING SALE TO [facility] Stop: 05/06/17 20:59 Last Admin: 03/09/17 04:19 Dose: 100 mls/hr Ipratropium [place] (Atrovent Neb 0.5mg/2.5ml) 0.5 mg HHN Q2HR PRN PRN Reason: Shortness of Breath or Wheeze Stop: 05/06/17 16:27 Loperamide HCl (Imodium) 2 mg PO DAILY PRN PRN Reason: Diarrhea Stop: 05/07/17 12:38 Loratadine (Claritin) 10 mg PO DAILY PRN PRN Reason: Allergy Symptoms Stop: 05/06/17 16:27 Lorazepam (Ativan) 1 mg PO Q6H PRN; Protocol PRN Reason: Anxiety/Agitation Stop: 05/06/17 16:24 Last Admin: 03/08/17 20:59 Dose: 1 mg Magnesium Hydroxide (Milk Of Magnesia) 30 ml PO HS PRN PRN Reason: Constipation Stop: 05/06/17 16:24 Meclizine HCl (Antivert) 25 mg PO DAILY PRN PRN Reason: Nausea / Vomiting Stop: 05/06/17 16:27 Naproxen (Naprosyn) 500 mg PO BID PRN PRN Reason: Pain (Mild-Moderate) Stop: 05/06/17 16:27 Ondansetron HCl (Zofran Odt) 4 mg PO Q6H PRN PRN Reason: Nausea / Vomiting Stop: 05/06/17 16:24 Pantoprazole Sodium (Protonix) 40 mg PO DAILY DERRICK Stop: 05/07/17 08:59 Last Admin: 03/09/17 09:25 Dose: 40 mg Quetiapine Fumarate (Seroquel) 100 mg PO HS DERRICK PRN Reason: Protocol Stop: 05/06/17 20:59 Last Admin: 03/08/17 22:18 Dose: 100 mg Zolpidem Tartrate (Ambien) 10 mg PO HS PRN PRN Reason: Insomnia Stop: 05/06/17 16:27 Infectious Disease Assmt/Plan - Problem List Patient Problems: All Active Problems Urinary incontinence, nocturnal enuresis (Acute) N39.44
[2017-03-09] MEDS: Levofloxacin 500mg/100mL 500 MG/100 ML BAG IV SCH (18:38)
== END 2017-03-09 21:34 | disposition home or self-care (01) | DRG 249 ==
LOC: ER 11:02 → MSI 13:40
PROVIDERS: ADMIT Preventive Medicine Preventive Medicine/Occupational Environmental Medicine; ATTEND Preventive Medicine Preventive Medicine/Occupational Environmental Medicine
PROC: 3E0234Z Introduction of Serum, Toxoid and Vaccine into Muscle, Percutaneous Approach (ICD-10-PCS; principal; 2017-03-07)
DX: K52.9 Noninfective gastroenteritis and colitis, unspecified (principal); F03.90 Unspecified dementia, unspecified severity, without behavioral disturbance, psychotic disturbance, mood disturbance, and anxiety; F20.0 Paranoid schizophrenia; N39.0 Urinary tract infection, site not specified; R73.9 Hyperglycemia, unspecified; E86.0 Dehydration; Z23 Encounter for immunization; R42 Dizziness and giddiness
CPT/HCPCS: 36415-UA; 71010-TC; 80048-TC; 80053-TC; 81001-TC; 83690-TC; 85025-TC; 85652-TC; 86141-TC; 87086-90; 87230-TC; 90799; 94760; 96374; J0360; J1956; J2405; J3480; J7030; Z7610